=== PATIENT | female | born 1990 ===

== ENCOUNTER → 2025-03-14 | Day surgery (SDC) | payer OTHER ==
[2025-03-11 13:12] VITALS: BP 116/78
[~2025-03-14] VITALS: Ht 160 cm; Wt 78.5 kg
[~2025-03-14] MED LIST: AMITRIPTYLINE H25 MG PO; BUPIVACAINE HCL/MPF 0.5% 30ML VIAL ONE; CEFAZOLIN SODIUM 1,000 MG VIAL ONE; EMGALITY P120 MG/1 M; MONODOX100 MG PO; NAPROXEN500 MG PO; POVIDONE-IODINE 118 ML BOTT TOP ONE; TRAM1TAB98 PO; TROKENDI XR50 MG PO; UBRELVY100 MG PO
[2025-03-14 21:30] VITALS: BP 111/66; O2SAT 100
== END | disposition home or self-care (01) ==
LOC: ADM 03-11 11:30 → CIR.AMB 05:50 → EDBD 11:30 → CIR.AMB 11:30
PROVIDERS: ATTEND Obstetrics & Gynecology
DX: N72 Inflammatory disease of cervix uteri (principal); N87.1 Moderate cervical dysplasia; Z30.2 Encounter for sterilization; G43.909 Migraine, unspecified, not intractable, without status migrainosus; F41.9 Anxiety disorder, unspecified